=== PATIENT | male | born 1955 | race African-American/Black ===

== ENCOUNTER 2016-11-11 11:58 | Inpatient (IN) | payer MEDICAID ==
[~2016-11-11] VITALS: Ht 205.7 cm; Wt 72.6 kg
[~2016-11-11 11:58] MED LIST: INSULIN; RENAGEL
[2016-11-11 18:14] LABS: BASOPHILS % 0.9 % (0.0-2.0); HEMATOCRIT. 37.1 % (42.0-52.0); HEMOGLOBIN. 12.4 g/dL (14.0-18.0); MEAN CORPUSCULAR HEMOGLOBIN 29.9 pg (28.0-32.0); MEAN CORPUSCULAR VOLUME 89.8 fL (80.0-94.0); MEAN PLATELET VOLUME 8.5 fl (7.4-10.4); MONOCYTES % 11.4 % (2.0-8.0); NEUTROPHILS % 55.7 % (40.0-76.0); PLATELET 155 x1000/uL (130-400); RED BLOOD CELL COUNT 4.13 mill/uL (4.7-6.1); RED CELL DISTRIBUTION WIDTH 13.3 % (11.6-14.6)
[2016-11-11 18:18] LABS: CHLORIDE 105 mEq/L (98-107)
[2016-11-11 18:19] LABS: INR 1.1; PROTHROMBIN TIME 11.6 sec (9.4-11.6)
[2016-11-11 18:28] LABS: CARBON DIOXIDE 23 mEq/L (21-32)
[2016-11-11] MEDS ORDERED: IBUPROFEN 600MG TABLET PO PRN (18:45)
[2016-11-11] MEDS ORDERED: DEXTROSE 50% WATER 50ML SYRINGE IV ONE (18:45)
[2016-11-11] MEDS ORDERED: ACETAMINOPHEN 325MG TABLET PO PRN (18:45)
[2016-11-11] MEDS ORDERED: INSULIN REGULAR (HUMULIN R) 300UNITS/3ML IV ONE (18:45)
[2016-11-11] MEDS ORDERED: CALCIUM GLUCONATE 1,000 MG in DEXT 5% WATER 100 ML IV ONE (18:45)
[2016-11-11] MEDS ORDERED: INSU100V3 SUBCUT (22:54)
[2016-11-11] MEDS ORDERED: REN800 PO (22:59)
[2016-11-11 23:51] VITALS: BP 138/69
[2016-11-12] VITALS (18 sets, daily range): BP systolic 96–188; BP diastolic 54–98
[2016-11-12] MEDS ORDERED: ACETAMINOPHEN 325MG TABLET PO PRN
[2016-11-12] MEDS ORDERED: NA PHOS,M-B/NA PHOS,DI-BA ENEMA 118ML PR PRN
[2016-11-12] MEDS ORDERED: GUAIFENESIN 200MG/10ML SUGAR FREE UDC PO PRN
[2016-11-12] MEDS ORDERED: MAGNESIUM/ALUMINUM HYDROXIDE/SIMETHICONE 30ML UDC PO PRN
[2016-11-12] MEDS ORDERED: HYDROCODONE/ACETAMINOPHEN 5/325MG TABLET PO PRN
[2016-11-12] MEDS ORDERED: DIPHENHYDRAMINE 50MG/ML VIAL IV PRN
[2016-11-12] MEDS ORDERED: ONDANSETRON HCL 4MG/2ML VIAL IV PRN
[2016-11-12] MEDS ORDERED: DOCUSATE SODIUM 100MG CAPSULE PO PRN
[2016-11-12] MEDS ORDERED: DEXTROSE 50% WATER 50ML SYRINGE IV PRN
[2016-11-12] MEDS ORDERED: CLONIDINE 0.1MG TABLET PO PRN
[2016-11-12] MEDS ORDERED: ACETAMINOPHEN 650MG/20.3ML UDC GT PRN
[2016-11-12] MEDS ORDERED: MORPHINE SULFATE 4 MG/ML CPJ (NOT FOR IM USE) IV PRN
[2016-11-12] MEDS ORDERED: IPRATROPIUM/ALBUTEROL 0.5-3(2.5)MG/3ML NEB INH PRN
[2016-11-12] MEDS ORDERED: ACETAMINOPHEN 650MG SUPP PR PRN
[2016-11-12] MEDS: SODIUM POLYSTYRENE SULFONATE 15 G/60 ML BOT PO NR (04:07)
[2016-11-12] MEDS: SODIUM CHLORIDE 0.9% INJ 3ML FLUSH IVF SCH ×3 (06:37→22:07)
[2016-11-12 06:44] LABS: BASOPHILS % 0.9 % (0.0-2.0); HEMATOCRIT. 35.8 % (42.0-52.0); LYMPHOCYTES % 17.8 % (20.0-50.0); MEAN CORPUSCULAR HEMOGLOBIN 30.4 pg (28.0-32.0); MEAN CORPUSCULAR VOLUME 90.6 fL (80.0-94.0); MEAN PLATELET VOLUME 8.5 fl (7.4-10.4); MONOCYTES % 13.2 % (2.0-8.0); NEUTROPHILS % 67.1 % (40.0-76.0); PLATELET 118 x1000/uL (130-400); RED BLOOD CELL COUNT 3.94 mill/uL (4.7-6.1); RED CELL DISTRIBUTION WIDTH 13.4 % (11.6-14.6)
[2016-11-12 06:58] LABS: CARBON DIOXIDE 21 mEq/L (21-32); CHLORIDE 104 mEq/L (98-107); HDL CHOLESTEROL 41 mg/dL (40-59); LDL CHOLESTEROL 42 mg/dL (5-100)
[2016-11-12] MEDS: BLOOD SUGAR DIAGNOSTIC STRIP TEST SCH ×4 (07:10→20:43)
[2016-11-12] MEDS: SEVELAMER CARBONATE 800 MG TABLET PO SCH ×3 (07:50→18:38)
[2016-11-12] MEDS: INSULIN LISPRO 100 UNITS/ML SUBCUT SCH ×4 (07:50→20:55)
[2016-11-12] MEDS ORDERED: ENOXAPARIN 30MG/0.3ML SYR SUBCUT SCH (09:00)
[2016-11-12] MEDS ORDERED: MEDICATION NOT ON FORMULARY EA (Sevelamer Hcl (Renagel) 800 MG) PO SCH (09:00)
[2016-11-12] MEDS ORDERED: LIDOCAINE HCL 1% 20ML VIAL (Pyxis) INJ ONE (11:21)
[2016-11-12] MEDS ORDERED: HEPARIN 1000 UNITS/ML 10ML ONE (11:22)
[2016-11-12] MEDS ORDERED: SODIUM BICARBONATE 4% (2.4MEQ) 5ML VIAL IV ONE (11:22)
[2016-11-12] MEDS ORDERED: IOHEXOL-300 100 ML BOTTLE ONE (11:22)
[2016-11-12] MEDS ORDERED: FENTANYL CITRATE/PF 50MCG/ML 2ML VIAL ONE (11:23)
[2016-11-12] MEDS ORDERED: CEFAZOLIN 1000MG PREMIX 50 ML IV ONE (11:39)
[2016-11-12] MEDS ORDERED: HEPARIN 5000 UNITS/ML VIAL IV ONE (12:00)
[2016-11-12] MEDS ORDERED: FENTANYL CITRATE/PF 50MCG/ML 2ML VIAL IV ONE (12:00)
[2016-11-12] MEDS ORDERED: CEFAZOLIN SODIUM 1000MG/VIAL IM ONE (12:15)
[2016-11-12] MEDS ORDERED: IOHEXOL-300 50 ML BOTTLE IV ONE ×2 (12:22→12:47)
[2016-11-12] MEDS ORDERED: CEFAZOLIN 1000MG PREMIX 50 ML IV SCH (12:30)
[2016-11-12 18:14] LABS: CLARITY URINE CLEAR (CLEAR); COLOR URINE YELLOW (YELLOW); GLUCOSE URINE 1+ (NEGATIVE); KETONES URINE NEGATIVE (NEGATIVE); LEUKOCYTE ESTERASE URINE NEGATIVE (NEGATIVE); NITRITE URINE NEGATIVE (NEGATIVE); OCCULT BLOOD URINE 1+ (NEGATIVE); PROTEIN URINE 2+ (NEGATIVE); SPECIFIC GRAVITY URINE 1.019 (1.005-1.030); UROBILINOGEN URINE 0.2 E.U./dL (0.2-1.0)
[2016-11-12 18:36] LABS: *AMPHETAMINES SCREEN URINE NEGATIVE (NEGATIVE); *BARBITURATES SCREEN URINE NEGATIVE (NEGATIVE); *BENZODIAZEPINES SCREEN URINE NEGATIVE (NEGATIVE); *COCAINE SCREEN URINE NEGATIVE (NEGATIVE); CANNABINOID URINE SCREEN NEGATIVE (NEGATIVE); METHADONE URINE SCREEN NEGATIVE (NEGATIVE); OPIATES URINE SCREEN NEGATIVE (NEGATIVE); PHENCYCLIDINE URINE SCREEN NEGATIVE (NEGATIVE)
[2016-11-13] VITALS: BP 111/58
[2016-11-13] MEDS: SODIUM POLYSTYRENE SULFONATE 15 G/60 ML BOT PO NR (00:01)
[2016-11-13 04:40] VITALS: BP 112/61
[2016-11-13] MEDS: SODIUM CHLORIDE 0.9% INJ 3ML FLUSH IVF SCH (06:12)
[2016-11-13] MEDS: BLOOD SUGAR DIAGNOSTIC STRIP TEST SCH (06:33)
[2016-11-13 07:42] LABS: HEMATOCRIT. 30.4 % (42.0-52.0); HEMOGLOBIN. 10.4 g/dL (14.0-18.0); MEAN CORPUSCULAR HEMOGLOBIN 30.4 pg (28.0-32.0); MEAN CORPUSCULAR VOLUME 89.3 fL (80.0-94.0); MEAN PLATELET VOLUME 9.2 fl (7.4-10.4); PLATELET 108 x1000/uL (130-400); RED CELL DISTRIBUTION WIDTH 13.4 % (11.6-14.6)
[2016-11-13 08:16] VITALS: BP 77/47
[2016-11-13] MEDS: SEVELAMER CARBONATE 800 MG TABLET PO SCH (09:10)
[2016-11-13] MEDS: INSULIN LISPRO 100 UNITS/ML SUBCUT SCH (09:11)
[2016-11-13 09:28] VITALS: BP 105/60
[2016-11-13 10:59] VITALS: BP 105/60
[2016-11-13 16:19] LABS: PLATELET ESTIMATE DECREASED
== END 2016-11-13 11:20 | disposition home or self-care (01) | DRG 182 ==
LOC: ER 14:35 → 6WST 18:50 → ENRESERV 21:01 → ER 22:15
PROVIDERS: ADMIT Family Medicine; ATTEND Family Medicine
PROC: 05CY3ZZ Extirpation of Matter from Upper Vein, Percutaneous Approach (ICD-10-PCS; principal; 2016-11-12)
PROC: B5171ZZ Fluoroscopy of Left Subclavian Vein using Low Osmolar Contrast (ICD-10-PCS; 2016-11-12)
PROC: B51N1ZZ Fluoroscopy of Left Upper Extremity Veins using Low Osmolar Contrast (ICD-10-PCS; 2016-11-12)
PROC: B5181ZZ Fluoroscopy of Superior Vena Cava using Low Osmolar Contrast (ICD-10-PCS; 2016-11-12)
PROC: 057Y3DZ Dilation of Upper Vein with Intraluminal Device, Percutaneous Approach (ICD-10-PCS; 2016-11-12)
PROC: 5A1D00Z (ICD-10-PCS; 2016-11-12)
DX: T82.868A Thrombosis due to vascular prosthetic devices, implants and grafts, initial encounter (principal); I50.31 Acute diastolic (congestive) heart failure; E11.22 Type 2 diabetes mellitus with diabetic chronic kidney disease; N18.6 End stage renal disease; I13.2 Hypertensive heart and chronic kidney disease with heart failure and with stage 5 chronic kidney disease, or end stage renal disease; E87.5 Hyperkalemia; D63.1 Anemia in chronic kidney disease; E78.00 Pure hypercholesterolemia, unspecified; R00.1 Bradycardia, unspecified; Y84.1 Kidney dialysis as the cause of abnormal reaction of the patient, or of later complication, without mention of misadventure at the time of the procedure; Z99.2 Dependence on renal dialysis; Y92.89 Other specified places as the place of occurrence of the external cause
CPT/HCPCS: 36415; 36905; 71010; 80048; 80053; 80061; 80305; 81001; 82962; 85025; 85610; 93005; 93306; 96365; 96375; 99291; C1725; C1766; C1769; C2630; J0610; J0690; J1644; J1650; J1815; J3010; J3490; J7030; J7040; J7060; Q9967

== ENCOUNTER 2018-04-10 16:13 | Inpatient (IN) | payer MEDICAID ==
[~2018-04-10] VITALS: Ht 175.3 cm; Wt 64.9 kg
[~2018-04-10 16:13] MED LIST changes: +INSU100V3 SUBCUT; -INSULIN; +REN800 PO; -RENAGEL
[2018-04-10] MEDS ORDERED: LISI40TA4 MT (17:16)
[2018-04-10] MEDS ORDERED: AMLO2.5T45 MT (17:16)
[2018-04-10] MEDS ORDERED: ASPI-1159 MT (17:16)
[2018-04-10 23:39] LABS: BASOPHILS % 0.5 % (0.0-2.0); EOSINOPHILS % 0.6 % (0.0-5.0); HEMOGLOBIN. 7.9 g/dL (14.0-18.0); LYMPHOCYTES % 9.9 % (20.0-50.0); MEAN CORPUSCULAR HEMOGLOBIN 28.8 pg (28.0-32.0); MEAN CORPUSCULAR VOLUME 87.7 fL (80.0-94.0); MEAN PLATELET VOLUME 7.7 fl (7.4-10.4); MONOCYTES % 10.8 % (2.0-8.0); NEUTROPHILS % 78.2 % (40.0-76.0); PLATELET 322 x1000/uL (130-400); RED BLOOD CELL COUNT 2.73 mill/uL (4.7-6.1); RED CELL DISTRIBUTION WIDTH 14.4 % (11.6-14.6)
[2018-04-10 23:44] LABS: CHLORIDE 88 mEq/L (98-107)
[2018-04-11] MEDS ORDERED: PIPERACILLIN/TAZ 3.375G PREMIX 50 ML IV ONE (00:30)
[2018-04-11] MEDS ORDERED: ACETAMINOPHEN 325MG TABLET PO PRN (08:30)
[2018-04-11] MEDS ORDERED: MAGNESIUM/ALUMINUM HYDROXIDE/SIMETHICONE 30ML UDC PO PRN (08:30)
[2018-04-11] MEDS ORDERED: IPRATROPIUM/ALBUTEROL 0.5-3(2.5)MG/3ML NEB INH PRN (08:30)
[2018-04-11] MEDS ORDERED: ONDANSETRON HCL 4MG/2ML INJ IV PRN (08:30)
[2018-04-11] MEDS ORDERED: GUAIFENESIN 200MG/10ML SUGAR FREE UDC PO PRN (08:30)
[2018-04-11] MEDS ORDERED: ACETAMINOPHEN 650MG SUPP PR PRN (08:30)
[2018-04-11] MEDS ORDERED: HYDROCODONE/ACETAMINOPHEN 5/325MG TABLET PO PRN (08:30)
[2018-04-11] MEDS ORDERED: DOCUSATE SODIUM 100MG CAPSULE PO PRN (08:30)
[2018-04-11] MEDS ORDERED: ACETAMINOPHEN 650MG/20.3ML UDC GT PRN (08:30)
[2018-04-11] MEDS ORDERED: DIPHENHYDRAMINE 50MG/ML VIAL IV PRN (08:30)
[2018-04-11] MEDS ORDERED: CLONIDINE 0.1MG TABLET PO PRN (08:30)
[2018-04-11] MEDS ORDERED: NA PHOS,M-B/NA PHOS,DI-BA ENEMA 118ML PR PRN (08:30)
[2018-04-11 09:36] LABS: CHLORIDE 88 mEq/L (98-107)
[2018-04-11 10:54] LABS: INR 1.5; PARTIAL THROMBOPLASTIN TIME 34.7 sec (23.4-31.0); PROTHROMBIN TIME 14.9 sec (9.1-11.1)
[2018-04-11 12:00] VITALS: BP 127/72
[2018-04-11 13:01] LABS: BASOPHILS % 0.8 % (0.0-2.0); EOSINOPHILS % 1.4 % (0.0-5.0); HEMATOCRIT. 24.5 % (42.0-52.0); HEMOGLOBIN. 8.2 g/dL (14.0-18.0); LYMPHOCYTES % 8.4 % (20.0-50.0); MEAN CORPUSCULAR HEMOGLOBIN 29.5 pg (28.0-32.0); MEAN CORPUSCULAR VOLUME 88.3 fL (80.0-94.0); MEAN PLATELET VOLUME 7.6 fl (7.4-10.4); MONOCYTES % 9.4 % (2.0-8.0); PLATELET 347 x1000/uL (130-400); RED BLOOD CELL COUNT 2.78 mill/uL (4.7-6.1)
[2018-04-11] MEDS: ENOXAPARIN 30MG/0.3ML SYR SUBCUT SCH (13:28)
[2018-04-11] MEDS ORDERED: VANCOMYCIN 1 G PREMIX 200 ML IV SCH (14:00)
[2018-04-11] MEDS: SODIUM CHLORIDE 0.9% INJ 3ML FLUSH IVF SCH ×2 (14:00→22:00)
[2018-04-11 20:00] VITALS: BP 143/73
[2018-04-11] MEDS ORDERED: DEXTROSE 50% WATER 50ML SYRINGE IV PRN (22:30)
[2018-04-11] MEDS ORDERED: PIPERACILLIN/TAZ 2.25G PREMIX 50 ML IV SCH (22:30)
[2018-04-12] VITALS: BP 138/76
[2018-04-12 04:00] VITALS: BP 97/58
[2018-04-12] MEDS: PIPERACILLIN/TAZ 2.25G PREMIX 50 ML IV SCH ×2 (05:57→13:05)
[2018-04-12] MEDS: SODIUM CHLORIDE 0.9% INJ 3ML FLUSH IVF SCH ×3 (07:04→23:04)
[2018-04-12] MEDS: BLOOD SUGAR DIAGNOSTIC STRIP TEST SCH ×4 (07:11→21:00)
[2018-04-12 07:45] LABS: BASOPHILS % 0.6 % (0.0-2.0); EOSINOPHILS % 0.7 % (0.0-5.0); HEMOGLOBIN. 7.5 g/dL (14.0-18.0); LYMPHOCYTES % 8.4 % (20.0-50.0); MEAN CORPUSCULAR HEMOGLOBIN 28.9 pg (28.0-32.0); MEAN CORPUSCULAR VOLUME 88.5 fL (80.0-94.0); MEAN PLATELET VOLUME 7.7 fl (7.4-10.4); MONOCYTES % 8.9 % (2.0-8.0); NEUTROPHILS % 81.4 % (40.0-76.0); PLATELET 298 x1000/uL (130-400); RED CELL DISTRIBUTION WIDTH 14.2 % (11.6-14.6)
[2018-04-12 07:56] LABS: CHLORIDE 99 mEq/L (98-107)
[2018-04-12 08:00] VITALS: BP 135/84
[2018-04-12 08:14] LABS: LDL CHOLESTEROL 56 mg/dL (5-100)
[2018-04-12 08:16] LABS: HDL CHOLESTEROL 23 mg/dL (40-59)
[2018-04-12] MEDS: INSULIN LISPRO 100 UNITS/ML SUBCUT SCH ×4 (08:21→23:01)
[2018-04-12 12:00] VITALS: BP 86/45
[2018-04-12] MEDS ORDERED: VANCOMYCIN 1 G PREMIX 200 ML IV SCH (12:00)
[2018-04-12] MEDS ORDERED: IOHEXOL-350 100 ML BOTTLE ONE (12:38)
[2018-04-12] MEDS: ENOXAPARIN 30MG/0.3ML SYR SUBCUT SCH (13:06)
[2018-04-12 16:00] VITALS: BP 110/60
[2018-04-12 20:00] VITALS: BP 119/71
[2018-04-13] VITALS (8 sets, daily range): BP systolic 94–144; BP diastolic 54–75
[2018-04-13] MEDS: PIPERACILLIN/TAZ 2.25G PREMIX 50 ML IV SCH ×3 (04:11→23:46)
[2018-04-13] MEDS: BLOOD SUGAR DIAGNOSTIC STRIP TEST SCH ×4 (06:55→21:00)
[2018-04-13 07:02] LABS: INR 1.1; PARTIAL THROMBOPLASTIN TIME 31.9 sec (23.4-31.0); PROTHROMBIN TIME 11.3 sec (9.1-11.1)
[2018-04-13 07:11] LABS: BASOPHILS % 0.5 % (0.0-2.0); EOSINOPHILS % 1.4 % (0.0-5.0); HEMATOCRIT. 22.5 % (42.0-52.0); HEMOGLOBIN. 7.4 g/dL (14.0-18.0); LYMPHOCYTES % 10.3 % (20.0-50.0); MEAN CORPUSCULAR HEMOGLOBIN 29.2 pg (28.0-32.0); MEAN CORPUSCULAR VOLUME 88.5 fL (80.0-94.0); MEAN PLATELET VOLUME 7.4 fl (7.4-10.4); MONOCYTES % 9.8 % (2.0-8.0); PLATELET 327 x1000/uL (130-400); RED BLOOD CELL COUNT 2.55 mill/uL (4.7-6.1); RED CELL DISTRIBUTION WIDTH 14.1 % (11.6-14.6)
[2018-04-13] MEDS: SODIUM CHLORIDE 0.9% INJ 3ML FLUSH IVF SCH ×3 (07:32→22:15)
[2018-04-13] MEDS: INSULIN LISPRO 100 UNITS/ML SUBCUT SCH ×4 (08:45→23:28)
[2018-04-13] MEDS ORDERED: IOHEXOL-300 100 ML BOTTLE ONE (11:47)
[2018-04-13] MEDS ORDERED: LIDOCAINE HCL 1% 20ML VIAL (Pyxis) INJ ONE (11:47)
[2018-04-13] MEDS ORDERED: IODIXANOL 320MG/ML 100 ML BOTTLE IV ONE (11:47)
[2018-04-13] MEDS: ENOXAPARIN 30MG/0.3ML SYR SUBCUT SCH (12:00)
[2018-04-13] MEDS ORDERED: MIDAZOLAM HCL 2 MG/2 ML VIAL ONE (12:05)
[2018-04-13] MEDS ORDERED: FENTANYL CITRATE/PF 50MCG/ML 2ML VIAL ONE (12:05)
[2018-04-14] VITALS: BP 130/67
[2018-04-14] MEDS: PIPERACILLIN/TAZ 2.25G PREMIX 50 ML IV SCH ×2 (02:05→12:20)
[2018-04-14 04:00] VITALS: BP 104/55
[2018-04-14] MEDS: BLOOD SUGAR DIAGNOSTIC STRIP TEST SCH ×4 (07:20→21:47)
[2018-04-14 08:00] VITALS: BP 122/69
[2018-04-14] MEDS: INSULIN LISPRO 100 UNITS/ML SUBCUT SCH ×4 (10:06→21:46)
[2018-04-14 12:00] VITALS: BP 125/77
[2018-04-14] MEDS: ENOXAPARIN 30MG/0.3ML SYR SUBCUT SCH (12:21)
[2018-04-14] MEDS: SODIUM CHLORIDE 0.9% INJ 3ML FLUSH IVF SCH ×2 (15:46→22:44)
[2018-04-14 16:00] VITALS: BP 128/78
[2018-04-14] MEDS ORDERED: VANCOMYCIN 500 MG PREMIX 100 ML IV SCH (16:00)
[2018-04-14 17:40] LABS: HEMOGLOBIN. 8.5 g/dL (14.0-18.0); MEAN CORPUSCULAR HEMOGLOBIN 28.9 pg (28.0-32.0); MEAN CORPUSCULAR VOLUME 88.4 fL (80.0-94.0); MEAN PLATELET VOLUME 7.1 fl (7.4-10.4); PLATELET 325 x1000/uL (130-400); RED BLOOD CELL COUNT 2.94 mill/uL (4.7-6.1); RED CELL DISTRIBUTION WIDTH 14.2 % (11.6-14.6)
[2018-04-14 17:57] LABS: CHLORIDE 101 mEq/L (98-107)
[2018-04-14 18:07] LABS: PLATELET ESTIMATE NORMAL
[2018-04-14 20:00] VITALS: BP 112/67
[2018-04-15] VITALS (36 sets, daily range): BP systolic 105–177; BP diastolic 66–91
[2018-04-15] MEDS: PIPERACILLIN/TAZ 2.25G PREMIX 50 ML IV SCH ×2 (00:25→12:00)
[2018-04-15] MEDS: SODIUM CHLORIDE 0.9% INJ 3ML FLUSH IVF SCH ×2 (06:24→14:00)
[2018-04-15] MEDS: BLOOD SUGAR DIAGNOSTIC STRIP TEST SCH ×4 (07:20→21:00)
[2018-04-15] MEDS: INSULIN LISPRO 100 UNITS/ML SUBCUT SCH ×4 (07:50→21:00)
[2018-04-15] MEDS ORDERED: SODIUM BICARBONATE 4% (2.4MEQ) 5ML VIAL IV ONE (09:12)
[2018-04-15] MEDS ORDERED: LIDOCAINE HCL 1% 20ML VIAL (Pyxis) INJ ONE (09:12)
[2018-04-15] MEDS ORDERED: HEPARIN 1000 UNITS/ML 10ML ONE (09:12)
[2018-04-15] MEDS ORDERED: IOHEXOL-300 100 ML BOTTLE ONE (09:12)
[2018-04-15] MEDS ORDERED: FENTANYL CITRATE/PF 50MCG/ML 2ML VIAL ONE (09:31)
[2018-04-15] MEDS ORDERED: HEPARIN 1000 UNITS/ML 10ML IV ONE (10:00)
[2018-04-15] MEDS ORDERED: IOHEXOL-300 50 ML BOTTLE IV ONE (10:44)
[2018-04-15] MEDS ORDERED: FENTANYL CITRATE/PF 50MCG/ML 2ML VIAL IV NR (11:15)
[2018-04-15] MEDS: ENOXAPARIN 30MG/0.3ML SYR SUBCUT SCH (12:00)
[2018-04-15 15:31] LABS: BASOPHILS % 0.9 % (0.0-2.0); EOSINOPHILS % 2.4 % (0.0-5.0); HEMATOCRIT. 31.9 % (42.0-52.0); HEMOGLOBIN. 10.5 g/dL (14.0-18.0); LYMPHOCYTES % 11.7 % (20.0-50.0); MEAN CORPUSCULAR HEMOGLOBIN 29.4 pg (28.0-32.0); MEAN CORPUSCULAR VOLUME 89.6 fL (80.0-94.0); MEAN PLATELET VOLUME 7.1 fl (7.4-10.4); MONOCYTES % 8.8 % (2.0-8.0); NEUTROPHILS % 76.2 % (40.0-76.0); PLATELET 342 x1000/uL (130-400); RED BLOOD CELL COUNT 3.56 mill/uL (4.7-6.1)
[2018-04-16] VITALS: BP 116/67
[2018-04-16] MEDS: PIPERACILLIN/TAZ 2.25G PREMIX 50 ML IV SCH ×2 (03:18→13:15)
[2018-04-16] MEDS: SODIUM CHLORIDE 0.9% INJ 3ML FLUSH IVF SCH ×3 (03:19→13:22)
[2018-04-16 04:00] VITALS: BP 131/76
[2018-04-16] MEDS: BLOOD SUGAR DIAGNOSTIC STRIP TEST SCH ×3 (07:16→17:18)
[2018-04-16 08:00] VITALS: BP 134/75
[2018-04-16] MEDS: INSULIN LISPRO 100 UNITS/ML SUBCUT SCH ×3 (08:42→17:47)
[2018-04-16 12:00] VITALS: BP 125/73
[2018-04-16] MEDS: ENOXAPARIN 30MG/0.3ML SYR SUBCUT SCH (13:15)
[2018-04-16 16:00] VITALS: BP 130/70
[2018-04-16 16:05] VITALS: BP 125/73
== END 2018-04-16 19:12 | disposition home or self-care (01) | DRG 182 ==
LOC: ER 16:27 → 6EST 04-11 02:03 → ENRESERV 04-11 09:13
PROVIDERS: ADMIT Family Medicine; ATTEND Family Medicine
PROC: 06HY33Z Insertion of Infusion Device into Lower Vein, Percutaneous Approach (ICD-10-PCS; 2018-04-11)
PROC: 30233N1 Transfusion of Nonautologous Red Blood Cells into Peripheral Vein, Percutaneous Approach (ICD-10-PCS; 2018-04-13)
PROC: B41G1ZZ Fluoroscopy of Left Lower Extremity Arteries using Low Osmolar Contrast (ICD-10-PCS; 2018-04-13)
PROC: B41F1ZZ Fluoroscopy of Right Lower Extremity Arteries using Low Osmolar Contrast (ICD-10-PCS; 2018-04-13)
PROC: 037Y3ZZ Dilation of Upper Artery, Percutaneous Approach (ICD-10-PCS; principal; 2018-04-15)
PROC: 03CY3ZZ Extirpation of Matter from Upper Artery, Percutaneous Approach (ICD-10-PCS; 2018-04-15)
PROC: B51N1ZZ Fluoroscopy of Left Upper Extremity Veins using Low Osmolar Contrast (ICD-10-PCS; 2018-04-15)
PROC: B5181ZZ Fluoroscopy of Superior Vena Cava using Low Osmolar Contrast (ICD-10-PCS; 2018-04-15)
PROC: B51N1ZZ Fluoroscopy of Left Upper Extremity Veins using Low Osmolar Contrast (ICD-10-PCS; 2018-04-15)
PROC: 05PYX3Z Removal of Infusion Device from Upper Vein, External Approach (ICD-10-PCS; 2018-04-15)
PROC: B31J1ZZ Fluoroscopy of Left Upper Extremity Arteries using Low Osmolar Contrast (ICD-10-PCS; 2018-04-15)
PROC: B31H1ZZ Fluoroscopy of Right Upper Extremity Arteries using Low Osmolar Contrast (ICD-10-PCS; 2018-04-15)
PROC: 05CY3ZZ Extirpation of Matter from Upper Vein, Percutaneous Approach (ICD-10-PCS; 2018-04-15)
DX: T82.590A Other mechanical complication of surgically created arteriovenous fistula, initial encounter (principal); E43 Unspecified severe protein-calorie malnutrition; E11.22 Type 2 diabetes mellitus with diabetic chronic kidney disease; D68.9 Coagulation defect, unspecified; E11.42 Type 2 diabetes mellitus with diabetic polyneuropathy; E11.621 Type 2 diabetes mellitus with foot ulcer; I12.0 Hypertensive chronic kidney disease with stage 5 chronic kidney disease or end stage renal disease; E11.52 Type 2 diabetes mellitus with diabetic peripheral angiopathy with gangrene; T82.818A Embolism due to vascular prosthetic devices, implants and grafts, initial encounter; E11.69 Type 2 diabetes mellitus with other specified complication; L97.509 Non-pressure chronic ulcer of other part of unspecified foot with unspecified severity; Y83.2 Surgical operation with anastomosis, bypass or graft as the cause of abnormal reaction of the patient, or of later complication, without mention of misadventure at the time of the procedure; E87.1 Hypo-osmolality and hyponatremia; L03.90 Cellulitis, unspecified; N18.6 End stage renal disease; T82.858A Stenosis of other vascular prosthetic devices, implants and grafts, initial encounter; Y83.8 Other surgical procedures as the cause of abnormal reaction of the patient, or of later complication, without mention of misadventure at the time of the procedure; M86.8X7 Other osteomyelitis, ankle and foot; D63.1 Anemia in chronic kidney disease; Y71.2 Prosthetic and other implants, materials and accessory cardiovascular devices associated with adverse incidents; Z99.2 Dependence on renal dialysis; Z79.82 Long term (current) use of aspirin; Z79.899 Other long term (current) drug therapy; Z79.4 Long term (current) use of insulin; Z68.21 Body mass index [BMI] 21.0-21.9, adult; Y92.89 Other specified places as the place of occurrence of the external cause
CPT/HCPCS: 36247; 36415; 36569; 36905; 71045; 73630; 75635; 75716; 76937; 80048; 80061; 80202; 82962; 86850; 86900; 86920; 93005; 96365; 99285; C1725; C1752; C1760; C1766; C1769; C1893; C2630; J1644; J1650; J1815; J2250; J2405; J2543; J3010; J3370; J3490; J7040; J7042; J7050; P9016; Q9967; A4315